=== PATIENT | female | born 1990 | race Caucasian/White ===

== ENCOUNTER 2023-05-30 19:16 | Emergency (ER) | payer OTHER ==
[~2023-05-30] VITALS: Ht 162.6 cm; Wt 93.0 kg
[2023-05-30 19:32] VITALS: TEMP 98.1
[2023-05-30] MEDS ORDERED: diphenhydrAMINE HCL 50 MG/ML VIAL ONE (19:50)
[2023-05-30] MEDS ORDERED: LORAZEPAM INJ 2 MG/ML VIAL ONE (19:51)
[2023-05-30] MEDS ORDERED: LABETALOL HCL IV 100MG VIAL ONE (19:51)
[2023-05-30 19:53] LABS: BASOPHILS % (AUTO) 0.4 % (0.0-2.0); EOSINOPHILS # (AUTO) 0.2 K/uL (0.0-0.7); EOSINOPHILS % (AUTO) 2.2 % (0.0-6.0); HEMATOCRIT 43 % (33-45); HEMOGLOBIN 15.1 g/dL (11.5-14.8); LYMPHOCYTES # (AUTO) 4.3 K/uL (0.8-4.8); LYMPHOCYTES % (AUTO) 42.5 % (20.0-44.0); MEAN CORPUSCULAR HEMOGLOBIN 31 PG (26.0-33.0); MEAN CORPUSCULAR HGB CONC 35 g/dl (31.0-36.0); MEAN CORPUSCULAR VOLUME 88 fL (82-100); MONOCYTES # (AUTO) 0.9 K/uL (0.1-1.30); MONOCYTES % (AUTO) 8.8 % (2.0-12.0); NEUTROPHILS # (AUTO) 4.6 K/uL (1.8-8.9); NEUTROPHILS % (AUTO) 46.1 % (43.0-81.0); PLATELET COUNT (AUTO) 280 K/uL (150-450); RED BLOOD CELL COUNT(AUTO) 4.88 MIL/uL (4.0-5.2); RED CELL DISTRIBUTION WIDTH 12.9 % (11.5-15.0); WHITE BLOOD COUNT (AUTO) 10.1 K/uL (4.3-11.0)
[2023-05-30 20:05] LABS: CALCIUM, SERUM 8.6 mg/dL (8.5-10.1); CARBON DIOXIDE 23 mmol/L (21-32); CHLORIDE 98 mmol/L (98-107); GLUCOSE 133 mg/dL (74-106); SODIUM SERUM 137 mmol/L (136-145); UREA NITROGEN, BLOOD 9 mg/dL (7-18)
[2023-05-30 20:06] LABS: POTASSIUM 2.8 mmol/L (3.5-5.1); SERUM AMMONIA 63 umol/L (11-32)
[2023-05-30] MEDS: diphenhydrAMINE HCL 50 MG/ML VIAL IV ONE (20:07)
[2023-05-30] MEDS: LORAZEPAM INJ 2 MG/ML VIAL IV ONE (20:07)
[2023-05-30 20:11] LABS: ALANINE AMINOTRANSFERASE 26 U/L (12-78); ALBUMIN 3.9 g/dL (3.4-5.0); ALKALINE PHOSPHATASE 73 U/L (46-116); ASPARTATE AMINOTRANSFERASE 13 U/L (15-37); BILIRUBIN,DIRECT 0.1 mg/dL (0.0-0.2); BILIRUBIN,TOTAL 0.5 mg/dL (0.2-1.0)
[2023-05-30 20:13] LABS: ALCOHOL, BLOOD < 3 mg/dL (0-10)
[2023-05-30] MEDS: LABETALOL 20 MG/4 ML VIAL IV ONE (20:16)
[2023-05-30] MEDS ORDERED: POTASSIUM CHLORIDE 20 MEQ TAB.PRT.SR PO ONE (20:18)
[2023-05-30 20:19] LABS: PARTIAL THROMBOPLASTIN TIME 27.4 SEC (24.3-34.3); PROTHROMBIN TIME 10.6 SECS (9.2-11.1)
[2023-05-30] MEDS: POTASSIUM CHLORIDE 20 MEQ TAB.PRT.SR PO ONE (20:23)
[2023-05-30] MEDS ORDERED: POTA20TA83 PO (20:46)
[2023-05-30] MEDS ORDERED: LORA-259 PO (20:46)
[2023-05-30 20:59] VITALS: BP 127/84; O2SAT 98
== END 2023-05-30 21:02 | disposition home or self-care (01) ==
LOC: ER 19:21
DX: E87.6 Hypokalemia (principal); R29.818 Other symptoms and signs involving the nervous system; Z60.2 Problems related to living alone
CPT/HCPCS: 99285; 96374; 96375; 93005; 70450; 82140; 85025; 80048; 80076; 36415; 84443; 85730; 82962; 80320; J2060; J1200; J3490 ×2; G0480